=== PATIENT | female | born 1985 | race African-American/Black ===

== ENCOUNTER → 2021-11-30 | Outpatient (CLI) | payer MEDICAID ==
--- NOTE | 2021-11-30 11:58 | RAD ---
EXAM: OBSTETRIC ULTRASOUND, <14 WEEKS. HISTORY: Multi , assess viability. COMPARISON: None. FINDINGS: Sonographic evaluation of the pelvis was performed transabdominally. The uterus is anteverted and measures 15.7 x 12.1 x 8.9 cm. A partially calcified myometrial fibroid anteriorly measures 3.7 x 2.6 cm. There is a single intrauterine gestation measuring 15 weeks 3 days. heart rate is 143 bpm. A yo lk sac is no longer visualized. There is no subchorionic collection. The cervix is closed and measure s 6.6 cm. The placenta is anterior with marginal previa. The stomach is visualized. Images of the kidneys reveal no hydronephrosis. The right ovary measures 3.2 x 2.9 x 2.6 cm. The left ovary measures 3.0 x 2.5 x 1.6 cm. There is nor mal Doppler flow bilaterally. There is no adnexal mass. There is no significant free fluid. IMPRESSION: 1. Single intrauterine gestation measuring 15 weeks 3 days. heart rate 143 bpm. 2. Marginal placenta previa. Attention on further follow-up. Electronically signed by: Constantine Ku MD (11/30/2021 11:56 AM) [id number]
== END ==
LOC: US 14:03
PROVIDERS: ATTEND Family Medicine
DX: O44.22 Partial placenta previa NOS or without hemorrhage, second trimester (principal); O34.12 Maternal care for benign tumor of corpus uteri, second trimester; D25.9 Leiomyoma of uterus, unspecified; Z3A.15 15 weeks gestation of pregnancy
CPT/HCPCS: 76801; 76817

== ENCOUNTER → 2022-02-01 | Outpatient (CLI) | payer MEDICAID ==
--- NOTE | 2022-02-02 12:57 | RAD ---
Study: US OB >14 WEEKS Clinical Indication: Placenta previa and second trimester anatomy scan. Comparison: 11/30/2021 Technique: Multiple grayscale images, color Doppler, and M-mode images of the uterus are obtained. Findings: Single intrauterine gestation in cephalic presentation. The placenta is anterior in location without evidence of placenta previa (there is 2.5 cm from the placental margin to the cervical os). The amoun t of amniotic fluid appears appropriate. Amniotic fluid index is 10.9 cm. Cervical length is 4.5 cm. There is redemonstrated anterior uterine fibroid measuring 3.2 x 2.6 x 4.0 cm. Biometrical data: BPD = 5.67 cm for 23 weeks 2 days. HC = 22.12 cm for 24 weeks 1 days. AC = 18.56 cm for 23 weeks 2 days. FL = 4.27 cm for 24 weeks 0 days. CI ratio = 73.6. (Normal range 74-83) HC/AC ratio = 1.19. FL/HC ratio = 19.3. FL/AC ratio = 23.0. Overall, the estimated sonographic gestational age is 23 weeks 5 days for an estimated date of delive ry of 05/26/2022. The clinical estimated date of delivery is 05/21/2022. Estimated weight is 616 + /- 91 grams. A 4 chamber heart is identified with positive cardiac activity. The estimated heart rate is 139 beats per minute. Bilateral upper and lower extremities are identified. There is a three-vessel cord with cord insertion visualized. stomach and urinary bladder are identified. Both kidneys are seen. The spine and brain are unremarkable. No gross anatomic abnormalities are identified. Impression: 1. Single live intrauterine gestation with estimated sonographic gestational age of 23 weeks 5 days corresponding to an estimated delivery date of 05/26/2022. Clinically estimated delivery date of 05/21/20 22. weight estimate of 616 +/- 91 grams which is at the 33rd percentile. 2. Cephalic index measuring 73.6 (just below normal range of 74-83), suggesting mild dolichocephaly. 3. No placenta previa. Electronically signed by: Nestor Boone MD (02/02/2022 12:54 PM) [id number]
== END ==
LOC: US 15:24
PROVIDERS: ATTEND Family Medicine
DX: O44.02 Complete placenta previa NOS or without hemorrhage, second trimester (principal); Z3A.23 23 weeks gestation of pregnancy
CPT/HCPCS: 76805